=== PATIENT | female | born 1950 | race Caucasian/White ===

== ENCOUNTER 2017-07-09 14:48 | Emergency (ER) | payer BC ==
[~2017-07-09] VITALS: Ht 162.6 cm; Wt 81.0 kg
[2017-07-09 15:02] VITALS: BP 146/80; PULSE 115; RESP 17; TEMP 97.6; O2SAT 96
--- NOTE | 2017-07-09 16:17 | PD ---
HPI Chief Complaint: Numbness/Tingling Time Seen by Provider: 15:46 Travel History International Travel<30 days: No Contact w/Intl Traveler<30days: No Traveled to known affect area: No History of Present Illness HPI 66 y/o female presents with pressure and tingling to the bottom of her foot with associated pressure to her right calf. She states she recently came here from [place] and is visiting. She denies any chest pain, back pain, weakness or other concurrent areas of tingling or pressure. She denies specific modifying factors. She denies recurrent history of this that she can recall. Quality is tingly. Location is right foot. PFSH Past Medical History Medical History: Denies Significant Hx Tetanus Vaccination: Unknown ?: Not Past Surgical History Cholecystectomy: Yes Other Surgery: Yes (DONATED KIDNEY ) Social History Alcohol Use: Yes (OCCASIONAL ) Tobacco Use: No Substance Use: No Allergies-Medications (Allergen,Severity, Reaction): Coded Allergies: penicillin G (Verified Allergy, Severe, INFECTION , 07/09/17) Reported Meds & Prescriptions Reported Meds & Active Scripts Active Reported Benicar (Olmesartan) 20 Mg Tab 20 Mg PO DAILY Review of Systems Except as stated in HPI: all other systems reviewed are Neg Physical Exam Narrative GENERAL: 66-year-old female in no apparent distress SKIN: Focused skin assessment warm/dry. HEAD: Atraumatic. Normocephalic. EYES: Pupils equal and round. No scleral icterus. No injection or drainage. ENT: No nasal bleeding or discharge. Mucous membranes pink and moist. NECK: Trachea midline. No JVD. CARDIOVASCULAR: Regular rate and rhythm. No murmur appreciated. RESPIRATORY: No accessory muscle use. Clear to auscultation. Breath sounds equal bilaterally. GASTROINTESTINAL: Abdomen soft, non-tender, nondistended. MUSCULOSKELETAL: No obvious deformities. No clubbing. No cyanosis. No edema. Pain with palpation of right calf, no pain with other joints , neurovascularly intact, no lacerations over, compartments soft. NEUROLOGICAL: Awake and alert. No obvious cranial nerve deficits. Motor grossly within normal limits. Normal speech. PSYCHIATRIC: Appropriate mood and affect; insight and judgment normal. Data Data Last Documented VS Vital Signs Date Time Temp Pulse Resp B/P (MAP) Pulse Ox O2 Delivery O2 Flow Rate FiO2 07/09/17 15:02 97.6 115 17 146/80 (102) 96 Orders Orders Us Leg Venous Doppler (07/09/17 ) Ed Discharge Order (07/09/17 17:59) MDM Medical Decision Making Medical Screen Exam Complete: Yes Emergency Medical Condition: Yes Medical Record Reviewed: Yes (Past history confirmed) Interpretation(s) Last 24 hours Impressions Lower Extremity Ultrasound 07/09/17 0000 Signed Impressions: CONCLUSION: 1. No DVT identified. Differential Diagnosis DVT, neuropathy, strain Narrative Course Will check ultrasound of leg and reevaluate patient with isolated numbness to the bottom of her foot with associated calf pain. ultrasound no acute, Patient denies any new complaints and states that they are feeling better. Patient happy with care, all questions answered. Patient knows that follow up is incumbent on them and to return to the emergency room immediately if new or worsening symptoms develop. Patient given strict return precautions, vitals reviewed and are normal, agrees to further workup as an outpatient. Diagnosis Primary Impression: Right foot pain Patient Instructions: General Instructions Additional Instructions: return as needed, tylenol as needed, follow with primary this week Med/Other Pt SpecificInfo: No Change to Meds Disposition: 01 DISCHARGE HOME Condition: Stable Emmanuelle Ricci MD July 09, 2017 16:17
[2017-07-09] MEDS ORDERED: OLME1TAB PO (16:50)
--- NOTE | 2017-07-09 17:30 | RADRPT ---
EXAM DATE: 07/09/2017 5:27 PM EDT AGE/SEX: 66 years / Female INDICATIONS: Right leg pain. CLINICAL DATA: This is the patient's initial encounter. Patient reports that signs and symptoms have been present for 4 - 6 days and indicates a pain score of 0/10. MEDICAL/SURGICAL HISTORY: . Cholecystectomy. Donated kidney surgery. COMPARISON: No prior [facility] exams available for comparison. TECHNIQUE: Venous ultrasound of both lower extremities was performed from the inguinal ligament to t he proximal calf. Real-time, color Doppler and spectral tracing, compression and augmentation techni ques were used. FINDINGS: There is normal compressibility of the deep venous system from the inguinal region to the proximal ca lf. No echogenic clot is seen in the lumen of the common femoral, femoral, popliteal, and posterior tibial veins. There is a normal response of the venous system to proximal and distal augmentation an d respiration. CONCLUSION: 1. No DVT identified. Electronically signed by: Jensen Montoya MD 07/09/2017 5:29 PM EDT
[2017-07-09 18:06] VITALS: BP 142/78
== END 2017-07-09 18:08 | disposition home or self-care (01) ==
LOC: NEPE 14:48
DX: M79.671 Pain in right foot (principal)
CPT/HCPCS: 93971; 99284